=== PATIENT | male | born 1985 | race Caucasian/White ===

== ENCOUNTER 2018-08-09 15:42 | Emergency (ER) | payer OTHER ==
[~2018-08-09 15:42] MED LIST: CEPHALEXIN500 M1 PO; [UNRECOGNIZED DRUG - REMARK] PO
[2018-08-09 16:02] VITALS: BP 136/82
== END 2018-08-09 16:05 | disposition home or self-care (01) ==
LOC: ED 15:42
DX: S61.219D Laceration without foreign body of unspecified finger without damage to nail, subsequent encounter (principal)